=== PATIENT | male | born 1985 | race Caucasian/White ===

== ENCOUNTER 2022-10-15 18:40 | Emergency (ER) | payer BC, SELFPAY ==
[2022-10-15 18:51] VITALS: BP 150/78; PULSE 91; RESP 18; TEMP 37.2; O2SAT 99
--- NOTE | 2022-10-15 18:55 | ED.GENADULT ---
HPI - General Adult General Chief complaint: Skin/Abscess/Foreign Body Stated complaint: Insect Bite Lt Ankle Source: patient Mode of arrival: ambulatory Limitations: no limitations History of Present Illness HPI narrative: 36-year-old male presented for complaint of left ankle swelling and redness following an insect sting 3 days ago. States he was stung by yellow jacket possibly twice. Reports the site is swollen and red. He has taken Benadryl. Denies numbness, tingling or weakness. Patient is ambulating without difficulty, but reports pain. Related Data Allergies Allergy/AdvReac Type Severity Reaction Status Date / Time No Known Allergies Allergy Verified 10/15/22 19:02 Review of Systems Review of Systems: CONSTITUTIONAL: Denies body aches, fever, chills, or sweats. EYES: Denies visual changes, redness, or discharge. ENT: Denies rhinorrhea, congestion CARDIOVASCULAR: Denies chest pain, palpitations, or edema. RESPIRATORY: Denies cough or dyspnea. GASTROINTESTINAL: Denies abdominal pain, nausea, vomiting, or diarrhea. SKIN: per HPI MUSCULOSKELETAL: Denies back pain, joint pain, or myalgia. NEUROLOGIC: Denies headache, numbness, tingling, or weakness. FOR[facility]LY [facility] Past Medical History Medical History (Updated 10/15/22 @ 19:59 by Yessi Mccarthy, SIMULATION TECH) No pertinent past medical history Comments At time of signature, I have reviewed and agree with nursing past medical, surgical, social and family history unless otherwise noted. Please see nursing chart for further information. There is no relevant family history pertinent to the presenting complaint Exam Narrative: GENERAL: Well-appearing HEAD: Normocephalic, atraumatic. EYES: conjunctivae clear, and EOMI. ENT: Mucous membranes moist. Oropharynx without edema, erythema or lesions. NECK: Supple. No lymphadenopathy CHEST: Clear to auscultation. HEART: Regular rate and rhythm. SKIN: Warm, dry. Left dorsal/lateral aspect of ankle and foot with dark erythema approx 4cm; moderate swelling to lateral ankle and foot; normal cap refill, normal sensation and strength. Full ROM to ankle. NEURO: Alert and oriented x3. Extrem: Ankle/foot/toe images: 1. approx 4cm diameter irregular area of dark erythema c/w ecchymosis, moderate swelling Course Course Emergency Course: Patient is aware of diagnosis, understands and agrees to treatment plan. Anticipatory guidance given. Patient agrees to follow-up as directed and is aware of reasons to seek care at the emergency department. Portions of this record may have been created with voice recognition software Level of Care: Express Care Visit Vital Signs Vital signs: Vital Signs Temperature 98.9 F 10/15/22 18:51 Pulse Rate 91 10/15/22 18:51 Respiratory Rate 18 10/15/22 18:51 Blood Pressure 150/78 H 10/15/22 18:51 Pulse Oximetry 99 10/15/22 18:51 Oxygen Delivery Room Air 10/15/22 18:51 Temperature 98.9 F 10/15/22 18:51 Pulse Rate 91 10/15/22 18:51 Respiratory Rate 18 10/15/22 18:51 Blood Pressure 150/78 H 10/15/22 18:51 Pulse Oximetry 99 10/15/22 18:51 Oxygen Delivery Room Air 10/15/22 18:51 Reviewed Medical Decision Making MDM Narrative Medical decision making narrative: Discussed physical exam findings consistent with allergic reaction to the insect sting. Given the darkened area of ecchymosis unable to fully evaluate for cellulitis, will send prescription antibiotic and steroid. Advised supportive measures and signs/symptoms to go to the ER. Pt is appropriate for outpt treatment and f/u. Differential Diagnosis Differential Diagnosis: Cellulitis, gout, abscess, allergic reaction Vital Signs Vital Signs: Vital Signs Temperature 98.9 F 10/15/22 18:51 Pulse Rate 91 10/15/22 18:51 Respiratory Rate 18 10/15/22 18:51 Blood Pressure 150/78 H 10/15/22 18:51 Pulse Oximetry 99 10/15/22 18:51 Oxygen Delivery Room Air 10/15/22 18:51
== END 2022-10-15 19:12 | disposition home or self-care (01) ==
PROVIDERS: Emergency Provider Nurse Practitioner Family; PCP Internal Medicine
DX: T63.461A Toxic effect of venom of wasps, accidental (unintentional), initial encounter (principal)
CPT/HCPCS: 99213; G0463